=== PATIENT | male | born 1970 | race Hispanic/Latino ===

== ENCOUNTER 2018-06-08 09:45 | Emergency (ER) | payer BC ==
[~2018-06-08] VITALS: Ht 160 cm; Wt 70.3 kg
--- OUTSIDE RECORDS SUMMARY | 2018-06-08 09:49 | XMS REPORT | Continuity of Care Document ---
Author Author [facility] Interface Address Unknown Phone Unavailable Problems Problem Status Onset Date Classification Date Reported Comments Source CAD W/ OTHER ANGINA, ABN NUCLEAR STRESS Active 04/07/2017 [facility] Anxiety Resolved Problem 04/14/2017 [facility] Angina of effort Resolved Problem 04/14/2017 [facility] HLD (<span ID="[id number]">Confirmed</span>) Resolved Problem 04/14/2017 [facility] Prostate enlargement Resolved Problem 04/14/2017 [facility] Medications Medication Details Route Status Patient Instructions Ordering Provider Order Date Source Effient 10 mg, 1 tab, Route: PO, Drug form: TAB, Daily, Dosing Weight 71.818, kg, Start date: 04/11/17 9:00:00 [employer], Duration: 30 day, Stop date: 05/10/17 9:00:00 CSTNotes: Same as Effient For patients 60kg, w ithout history of TIA/Ischemic stroke and without likely bypass surgery No Longer Active 04/11/2017 [facility] aspirin 81 mg tablet, enteric coated 81 mg, 1 tab, Route: PO, Drug form: ECTAB, Daily, Dosing Weight 71.818, kg, Start date: 04/11/17 9:00:00 [employer], Duration: 30 day, Stop date: 05/10/17 9:00:00 CSTNotes: Do not crush or chew. (Same As: Ecotrin) No Longer Active 04/11/2017 [facility] Lipitor 80 mg, 1 tab, Route: PO, Drug form: TAB, Bedtime, Dosing Weight 71.818, kg, Start date: 04/10/17 21:00:00 [employer], Duration: 30 day, Stop date: 05/09/17 21:00:00 CSTNotes: Same as Lipitor No Longer Active 04/11/2017 [facility] atorvastatin 80 MG Oral Tablet [Lipitor] 80 mg, PO, Bedtime, # 90 tab, 3 Refill(s) Active 04/10/2017 [facility] acetaminophen-codeine #3 1 tab, Route: PO, Drug Form: TAB, Dosing Weight 71.818, kg, Q4H, PRN Pain Score 4-6, Start date: 04/10/17 9:59:00 [employer], Duration: 30 day, Stop date: 05/10/17 9:58:00 CSTNotes: Do not exceed 4gm/day of acetaminophen. (Same as: Tylenol with Codeine # 3) No Longer Active 04/10/2017 [facility] Sodium Chloride 0.9% (Bolus) IV 250 mL, 250 ml/hr, Infuse Over: 1 hr, Route: IV, 250, Drug form: INJ, ONCE, Dosing Weight 71.818 kg, Start date: 04/10/17 9:59:00 [employer], Duration: 1 doses or times, Stop date: 04/10/17 9:59:00 [employer] Inactive 04/10/2017 [facility] sodium chloride 0.9% 1000 ml INJ 750 mL 750 mL, Rate: 75 ml/hr, Infuse over: 10 hr, Route: IV, Dosing Weight 71.818 kg, Total Volume: 750, Start date: 04/10/17 9:59:00 [employer], Duration: 10 hr, Stop date: 04/10/17 19:58:00 [employer] Inactive 04/10/2017 [facility] Allergies, Adverse Reactions, Alerts Substance Category Reaction Severity Reaction type Status Date Reported Comments Source Immunizations Immunization Date Given Site Status Last Updated Comments Source Results Order Name Results Value Reference Range Date Interpretation Comments Source CHEM PANEL eGFR 116 mL/min/1.73m2 04/11/2017 Result Comment: The eGFR is calculated using the CKD-EPI formula. In most young, healthy individuals the eGFR will be >90 mL/min/1.73m2. The eGFR declines with age. An eGFR of 60-89 may be normal in some populations, particularly the elderly, for whom the CKD-EPI formula has not been extensively validated. Use of the eGFR is not recommended in the following populations: Individuals with unstable creatinine concentrations, including patients and those with serious co-morbid conditions. Patients with extremes in muscle mass or diet. The data above are obtained from the National Kidney Disease Education Program (NKDEP) which additionally recommends that when the eGFR is used in patients with extremes of body mass index for purposes of drug dosing, the eGFR should be multiplied by the estimated BMI. [facility] CHEM PANEL Creatinine Lvl 0.65 mg/dL 0.50 - 1.40 04/11/2017 [facility] HEMATOLOGY Hgb 13.1 g/dL 14.0 - 18.0 04/11/2017 [facility] BLOOD BANK RESULTS Antibody Scrn Negative (04/10/17 7:13 AM) 04/10/2017 [facility] BLOOD BANK RESULTS ABO/Rh O POS 04/10/2017 [facility] CHEM PANEL Magnesium Lvl 2.1 mg/dL 1.8 - 2.4 04/10/2017 [facility] ELECTROLYTES AGAP 12.8 meq/L 10.0 - 20.0 04/10/2017 [facility] ELECTROLYTES B/C Ratio 16 6 - 25 04/10/2017 [facility] ELECTROLYTES Globulin 3.2 g/dL 2.7 - 4.2 04/10/2017 [facility] ELECTROLYTES A/G Ratio 1.2 0.7 - 1.6 04/10/2017 [facility] ELECTROLYTES eGFR 106 mL/min/1.73m2 04/10/2017 Result Comment: The eGFR is calculated using the CKD-EPI formula. In most young, healthy individuals the eGFR will be >90 mL/min/1.73m2. The eGFR declines with age. An eGFR of 60-89 may be normal in some populations, particularly the elderly, for whom the CKD-EPI formula has not been extensively validated. Use of the eGFR is not recommended in the following populations: Individuals with unstable creatinine concentrations, including patients and those with serious co-morbid conditions. Patients with extremes in muscle mass or diet. The data above are obtained from the National Kidney Disease Education Program (NKDEP) which additionally recommends that when the eGFR is used in patients with extremes of body mass index for purposes of drug dosing, the eGFR should be multiplied by the estimated BMI. [facility] ELECTROLYTES CO2 24 meq/L 24 - 32 04/10/2017 [facility] ELECTROLYTES Chloride Lvl 108 meq/L 95 - 109 04/10/2017 [facility] ELECTROLYTES Calcium Lvl 8.6 mg/dL 8.5 - 10.5 04/10/2017 [facility] ELECTROLYTES Glucose Lvl 89 mg/dL 70 - 99 04/10/2017 [facility] ELECTROLYTES Creatinine Lvl 0.81 mg/dL 0.50 - 1.40 04/10/2017 [facility] ELECTROLYTES Sodium Lvl 141 meq/L 135 - 145 04/10/2017 [facility] ELECTROLYTES Potassium Lvl 3.8 meq/L 3.5 - 5.1 04/10/2017 [facility] ELECTROLYTES BUN 13 mg/dL 7 - 22 04/10/2017 [facility] ELECTROLYTES Total Protein 7.0 g/dL 6.4 - 8.4 04/10/2017 [facility] ELECTROLYTES AST 19 unit/L 0 - 37 04/10/2017 [facility] ELECTROLYTES ALT 41 unit/L 0 - 65 04/10/2017 [facility] ELECTROLYTES Bili Total 0.5 mg/dL 0.2 - 1.3 04/10/2017 [facility] ELECTROLYTES Albumin Lvl 3.8 g/dL 3.5 - 5.0 04/10/2017 [facility] ELECTROLYTES Alk Phos 82 unit/L 39 - 136 04/10/2017 [facility] HEMATOLOGY Eosinophils # 0.4 K/CMM 0.0 - 0.5 04/10/2017 [facility] HEMATOLOGY Monocytes # 0.5 K/CMM 0.0 - 0.8 04/10/2017 [facility] HEMATOLOGY Lymphocytes # 1.8 K/CMM 1.0 - 5.5 04/10/2017 [facility] HEMATOLOGY Basophils 0.7 % 0.0 - 1.0 04/10/2017 [facility] HEMATOLOGY Segs-Bands # 2.6 K/CMM 1.5 - 8.1 04/10/2017 [facility] HEMATOLOGY Monocytes 9.3 % 2.0 - 12.0 04/10/2017 [facility] HEMATOLOGY Eosinophils 7.8 % 0.0 - 4.0 04/10/2017 [facility] HEMATOLOGY Segs 49.0 % 45.0 - 75.0 04/10/2017 [facility] HEMATOLOGY Lymphocytes 33.2 % 20.0 - 40.0 04/10/2017 [facility] HEMATOLOGY INR 0.99 0.85 - 1.17 04/10/2017 [facility] HEMATOLOGY PT 13.1 s 12.0 - 14.7 04/10/2017 [facility] HEMATOLOGY PTT 33.3 s 22.9 - 35.8 04/10/2017 [facility] HEMATOLOGY Platelet 306 K/CMM 133 - 450 04/10/2017 [facility] HEMATOLOGY MPV 7.4 fL 7.4 - 10.4 04/10/2017 [facility] HEMATOLOGY RDW 15.6 % 11.5 - 14.5 04/10/2017 [facility] HEMATOLOGY MCHC 34.4 g/dL 32.0 - 36.0 04/10/2017 [facility] HEMATOLOGY MCH 29.1 pg 27.0 - 31.0 04/10/2017 [facility] HEMATOLOGY MCV 84.5 fL 80.0 - 94.0 04/10/2017 [facility] HEMATOLOGY Hct 41.0 % 42.0 - 54.0 04/10/2017 [facility] HEMATOLOGY Hgb 14.1 g/dL 14.0 - 18.0 04/10/2017 [facility] HEMATOLOGY WBC 5.4 K/CMM 3.7 - 10.4 04/10/2017 [facility] HEMATOLOGY RBC 4.85 M/CMM 4.70 - 6.10 04/10/2017 [facility] Vital Signs Vital Sign Value Date Comments Source Temperature Oral (F) 97.0 F 04/11/2017 [facility] Systolic (mm Hg) 123 04/11/2017 [facility] Diastolic (mm Hg) 79 04/11/2017 [facility] Systolic (mm Hg) 112 04/11/2017 [facility] Diastolic (mm Hg) 67 04/11/2017 [facility] Systolic (mm Hg) 134 04/11/2017 [facility] Diastolic (mm Hg) 92 04/11/2017 [facility] Respitory Rate 18 04/10/2017 [facility] Respitory Rate 18 04/10/2017 [facility] Respitory Rate 18 04/10/2017 [facility] Temperature Oral (F) 98.8 F 04/10/2017 [facility] Height 160.02 cm 04/10/2017 [facility] Weight 71.818 04/10/2017 [facility] BMI Calculated 28.05 04/10/2017 [facility] Encounters Location Location Details Encounter Type Encounter Number Reason For Visit Attending Provider ADM Date DC Date Status Source [facility] Bedded Outpatient [id number] Sai Del Toro 04/10/2017 04/11/2017 [facility] Procedures Procedure Code Date Perfomer Comments Source Cardiac catheterisation, left heart [id number] [facility]
--- OUTSIDE RECORDS SUMMARY | 2018-06-08 09:49 | XMS REPORT | Summary of Care ---
Author Author [facility] Organization [facility] Address Unknown Phone Unavailable Encounter TOY Zabala(SABA) [id number] Date(s): 04/10/17 - 04/11/17 [facility] [address] [employer] provided by [facility] [place] [address]- Discharge Disposition: Home or Self Care Attending Physician: Sai Del Toro MD Admitting Physician: Sai Del Toro MD Referring Physician: Sai Del Toro MD Vital Signs 1 2 3 Most recent to oldest [Reference Range]: 160.02 cm (04/10/17 7:11 AM) Height 97.0 DegF (04/11/17 7:00 AM) 98.8 DegF (04/10/17 7:24 AM) Temperature Oral [96.4-99.1 DegF] 123/79 mmHg (04/11/17 7:00 AM) 112/67 mmHg (04/11/17 4:00 AM) 134/92 mmHg (04/10/17 10:00 PM) Blood Pressure [90-140/60-90 mmHg] 18 BRMIN (04/10/17 5:00 PM) 18 BRMIN (04/10/17 4:29 PM) 18 BRMIN (04/10/17 3:00 PM) Respiratory Rate [14-20 BRMIN] 71.818 kg (04/10/17 7:11 AM) Weight 28.05 m2 (04/10/17 7:11 AM) Body Mass Index Problem List Condition Effective Dates Status Health Status Informant Anxiety(Confirmed) Resolved Angina of Resolved effort(Confirmed) HLD Resolved (hyperlipidemia)(Con firmed) Prostate Resolved enlargement(Confirme d) Allergies, Adverse Reactions, Alerts Substance Reaction Severity Status NKDA Active Medications acetaminophen-codeine #3 1 tab, Route: PO, Drug Form: TAB, Dosing Weight 71.818, kg, Q4H, PRN Pain Score 4-6, Start date: 04/10/17 9:59:00 OUTPATIENT SURGERY RN, Duration: 30 day, Stop date: 05/10/17 9:5 8:00 OUTPATIENT SURGERY RN Notes: Do not exceed 4gm/day of acetaminophen. (Same as: Tylenol with Codeine # 3) Start Date: 04/10/17 Stop Date: 04/13/17 Status: Discontinued aspirin 81 mg tablet, enteric coated 81 mg, 1 tab, Route: PO, Drug form: ECTAB, Daily, Dosing Weight 71.818, kg, Star t date: 04/11/17 9:00:00 OUTPATIENT SURGERY RN, Duration: 30 day, Stop date: 05/10/17 9:00:00 OUTPATIENT SURGERY RN Notes: Do not crush or chew.(Same As: Ecotrin) Start Date: 04/11/17 Stop Date: 04/13/17 Status: Discontinued Effient 10 mg, 1 tab, Route: PO, Drug form: TAB, Daily, Dosing Weight 71.818, kg, Start date: 04/11/17 9:00:00 OUTPATIENT SURGERY RN, Duration: 30 day, Stop date: 05/10/17 9:00:00 OUTPATIENT SURGERY RN Notes: Same as Effient For patients < 75 years old, > 60kg, without history of TIA/Ischemic stroke and without likely bypass surgery Start Date: 04/11/17 Stop Date: 04/13/17 Status: Discontinued Lipitor 80 mg, 1 tab, Route: PO, Drug form: TAB, Bedtime, Dosing Weight 71.818, kg, Star t date: 04/10/17 21:00:00 OUTPATIENT SURGERY RN, Duration: 30 day, Stop date: 05/09/17 21:00:00 CS T Notes: Same as Lipitor Start Date: 04/10/17 Stop Date: 04/13/17 Status: Discontinued Lipitor 80 mg oral tablet 80 mg, PO, Bedtime, # 90 tab, 3 Refill(s) Start Date: 04/10/17 Status: Ordered Sodium Chloride 0.9% (Bolus) IV 250 mL, 250 ml/hr, Infuse Over: 1 hr, Route: IV, 250, Drug form: INJ, ONCE, Dosi ng Weight 71.818 kg, Start date: 04/10/17 9:59:00 OUTPATIENT SURGERY RN, Duration: 1 doses or time s, Stop date: 04/10/17 9:59:00 OUTPATIENT SURGERY RN Start Date: 04/10/17 Stop Date: 04/10/17 Status: Completed sodium chloride 0.9% 1000 ml INJ 750 mL 750 mL, Rate: 75 ml/hr, Infuse over: 10 hr, Route: IV, Dosing Weight 71.818 kg, Total Volume: 750, Start date: 04/10/17 9:59:00 OUTPATIENT SURGERY RN, Duration: 10 hr, Stop date: 04/10/17 19:58:00 OUTPATIENT SURGERY RN Start Date: 04/10/17 Stop Date: 04/10/17 Status: Completed Results BLOOD BANK RESULTS Most recent to 1 2 oldest [Reference Range]: ABO/Rh O POS *Unknown* (04/10/17 7:13 AM) Antibody Scrn Negative (04/10/17 7:13 AM) ELECTROLYTES Most recent to 1 2 oldest [Reference Range]: Sodium Lvl [135-145 141 mEq/L mEq/L] (04/10/17 7:13 AM) Potassium Lvl 3.8 mEq/L [3.5-5.1 mEq/L] (04/10/17 7:13 AM) Chloride Lvl [95-109 108 mEq/L mEq/L] (04/10/17 7:13 AM) CO2 [24-32 mEq/L] 24 mEq/L (04/10/17 7:13 AM) AGAP [10.0-20.0 12.8 mEq/L mEq/L] (04/10/17 7:13 AM) CHEM PANEL Most recent to 1 2 oldest [Reference Range]: Creatinine Lvl 0.65 mg/dL 0.81 mg/dL [0.50-1.40 mg/dL] (04/11/17 5:15 AM) (04/10/17 7:13 AM) eGFR 116 mL/min/1.73m2 1 106 mL/min/1.73m2 2 *NA* *NA* (04/11/17 5:15 AM) (04/10/17 7:13 AM) BUN [7-22 mg/dL] 13 mg/dL (04/10/17 7:13 AM) B/C Ratio [6-25] 16 (04/10/17 7:13 AM) Glucose Lvl [70-99 89 mg/dL mg/dL] (04/10/17:13 AM) Total Protein 7.0 g/dL [6.4-8.4 g/dL] (04/10/1713 AM) Albumin Lvl [3.5-5.0 3.8 g/dL g/dL] (04/10/1713 AM) Globulin [2.7-4.2 3.2 g/dL g/dL] (04/10/1713 AM) A/G Ratio [0.7-1.6] 1.2 (04/10/1713 AM) Calcium Lvl 8.6 mg/dL [8.5-10.5 mg/dL] (04/10/17 AM) Magnesium Lvl 2.1 mg/dL [1.8-2.4 mg/dL] (04/10/17 AM) ALT [0-65 unit/L] 41 unit/L (04/10/17 AM) AST [0-37 unit/L] 19 unit/L (04/10/17: AM) Alk Phos [39-136 82 unit/L unit/L] (04/10/17 AM) Bili Total [0.2-1.3 0.5 mg/dL mg/dL] (04/10/17:13 AM) 1Result Comment: The eGFR is calculated using the [...] from the National Kidney Disease Education Program ( NKDEP) which additionally recommends that when the eGFR is used in patients with extremes of body mass index for purposes of drug dosing, the eGFR should be mul tiplied by the estimated BMI. 2Result Comment: The eGFR is calculated using the [...] from the National Kidney Disease Education Program ( NKDEP) which additionally recommends that when the eGFR is used in patients with extremes of body mass index for purposes of drug dosing, the eGFR should be mul tiplied by the estimated BMI. HEMATOLOGY Most recent to 1 2 oldest [Reference Range]: WBC [3.7-10.4 K/CMM] 5.4 K/CMM (04/10/17 7:13 AM) RBC [4.70-6.10 4.85 M/CMM M/CMM] (04/10/17 7:13 AM) Hgb [14.0-18.0 g/dL] 13.1 g/dL 14.1 g/dL *LOW* (04/10/17 7:13 AM) (04/11/17 5:15 AM) Hct [42.0-54.0 %] 41.0 % *LOW* (04/10/17 7:13 AM) MCV [80.0-94.0 fL] 84.5 fL (04/10/17 7:13 AM) MCH [27.0-31.0 pg] 29.1 pg (04/10/17 7:13 AM) MCHC [32.0-36.0 34.4 g/dL g/dL] (04/10/17 7:13 AM) RDW [11.5-14.5 %] 15.6 % *HI* (04/10/17 7:13 AM) Platelet [133-450 306 K/CMM K/CMM] (04/10/17 7:13 AM) MPV [7.4-10.4 fL] 7.4 fL (04/10/17 7:13 AM) Segs [45.0-75.0 %] 49.0 % (04/10/17 7:13 AM) Lymphocytes 33.2 % [20.0-40.0 %] (04/10/17 7:13 AM) Monocytes [2.0-12.0 9.3 % %] (04/10/17 7:13 AM) Eosinophils [0.0-4.0 7.8 % %] *HI* (04/10/17 7:13 AM) Basophils [0.0-1.0 0.7 % %] (04/10/17 7:13 AM) Segs-Bands # 2.6 K/CMM [1.5-8.1 K/CMM] (04/10/17 7:13 AM) Lymphocytes # 1.8 K/CMM [1.0-5.5 K/CMM] (04/10/17 7:13 AM) Monocytes # [0.0-0.8 0.5 K/CMM K/CMM] (04/10/17 7:13 AM) Eosinophils # 0.4 K/CMM [0.0-0.5 K/CMM] (04/10/17 7:13 AM) PT [12.0-14.7 13.1 seconds seconds] (04/10/17 7:13 AM) INR [0.85-1.17] 0.99 (04/10/17 7:13 AM) PTT [22.9-35.8 33.3 seconds seconds] (04/10/17 7:13 AM) Immunizations No data available for this section Procedures Procedure Date Related Diagnosis Body Site Cardiac catheterisation, left heart Social History Social History Type Response Substance Abuse Use: None. Alcohol Current, Type Beer, Wine, Liquor. Frequency: 1-2 times per month. Previous treatment: None. Alcohol use interferes with work or home: No. Drinks more than intended: No. Others hurt by drinking: No. Ready to change: No. Household alcohol concerns: No. Smoking Status Never smoker; Exposure to Tobacco Smoke None; Cigarette Smoking Last 365 Days No; Reg Smoking Cessation Counseling No Assessment and Plan No data available for this section
[2018-06-08] MEDS ORDERED: ONDANSETRON HCL INJ 2 MG/ML VIAL IV STA (10:16)
[2018-06-08] MEDS ORDERED: SODIUM CHLORIDE 0.9% 1000ML 1,000 ML IV SCH (10:45)
[2018-06-08] MEDS ORDERED: ZOFRAN4 MG PO (11:04)
--- NOTE | 2018-06-08 11:12 | Diagnostic Imaging Report ---
History: Dizziness. No pain Comparison studies: None Technique: Axial images were obtained from the skull base to the vertex. Coronal and sagittal reconstructions obtained from the axial data. Dose modulation, iterative reconstruction, and/or weight based adjustment of the mA/kV was utilized to reduce the radiation dose to as low as reasonably achievable. Findings: Scalp/skull: No abnormalities. No fractures, blastic or lytic lesions. Extra-axial spaces: No masses. No fluid collections. Brain sulci: Mildly prominent bilateral sylvian fissures, related to mild volume loss of the bilateral temporal and frontal operculi. Ventricles: Normal in size and configuration. No hydrocephalus. Parenchyma: No abnormal densities. No masses, hemorrhage, acute or chronic cortical vascular insults. Sellar/suprasellar region: No abnormalities Craniocervical junction: Patent foramen magnum. No Chiari one malformation. IMPRESSION: No acute abnormalities . Signed by: DR Gunner Sanchez M.D. on 06/08/2018 11:09 AM
--- NOTE | 2018-06-08 12:30 | NUR ---
Orthostatic Vital Signs Lying 121/72 HR- 60 Sitting 126/82 HR- 62 Standing 133/87 HR- 67
[2018-06-08 13:24] VITALS: BP 131/84
== END 2018-06-08 13:37 | disposition home or self-care (01) ==
LOC: FSED 09:45
DX: R42 Dizziness and giddiness (principal); Z95.5 Presence of coronary angioplasty implant and graft
CPT/HCPCS: 70450; 80053; 84484; 85025; 93005; 99284; J2405; J7030